=== PATIENT | female | born 1970 | race Caucasian/White ===

== ENCOUNTER 2022-10-19 13:40 | Outpatient (CLI) | payer BC | END 2022-10-19 13:41 | disposition home or self-care (01) | LOC: CSHMAMMO 13:40 | PROVIDERS: ATTEND Family Medicine | DX: Z12.31 Encounter for screening mammogram for malignant neoplasm of breast (principal); Z80.3 Family history of malignant neoplasm of breast; Z98.82 Breast implant status | CPT/HCPCS: 77063; 77067 ==